=== PATIENT | male | born 1960 | race African-American/Black ===

== ENCOUNTER 2020-07-31 09:52 | Emergency (ER) | payer OTHER ==
[~2020-07-31] VITALS: Ht 188 cm; Wt 113.4 kg
[2020-07-31 10:18] VITALS: BP 154/94
--- NOTE | 2020-07-31 10:18 | NUR ---
ED Nurse Note: Patient from home and walked in due to left side CP and non radiating x 2 days. patient also c/o headache x 2 days. No reports of coughing or fever. AAOx4, ambulates with steday gait. No respiratory distress.
--- NOTE | 2020-07-31 10:41 | NUR ---
ED Nurse Note: Collected blood and urine then sent.
[2020-07-31 11:00] LABS: BASOPHILS % (AUTO) 2.6 % (0.0-2.0); EOSINOPHILS % (AUTO) 2.6 % (0.0-3.0); HEMATOCRIT 42.7 % (42.0-52.0); HEMOGLOBIN 14.3 G/DL (14.2-18.0); LYMPHOCYTES % (AUTO) 51.5 % (20.0-45.0); MEAN CORPUSCULAR VOLUME 97 FL (80-99); MONOCYTES % (AUTO) 5.7 % (1.0-10.0); NEUTROPHILS % (AUTO) 37.6 % (45.0-75.0); PLATELET COUNT 244 K/UL (150-450); RED BLOOD COUNT 4.38 M/UL (4.70-6.10); RED CELL DISTRIBUTION WIDTH 12.8 % (11.6-14.8); WHITE BLOOD COUNT 4.6 K/UL (4.8-10.8)
--- NOTE | 2020-07-31 11:02 | Emergency Room Report ---
History of Present Illness General Chief Complaint: Chest Pain Source: Patient Present Illness HPI Disclaimer: Please note that this report is being documented using [employer] technology. This can lead to erroneous entry secondary to incorrect interpretation by the dictating instrument. HPI: 60-year-old male presents for evaluation of chest pain. Patient noticed a left-sided chest pressure that was nonradiating while at work yesterday. He took 162 mg aspirin when returning home and rested in a warm bath which resolved his symptoms. He denies shortness of breath, palpitations, lightheadedness, diaphoresis, nausea, vomiting, fever, chills or other changes in his health. This morning he awoke with the same left-sided chest pressure. Again nonradiating. Does not appear to be exacerbated by movement or exertion but is relieved by rest. Patient does not take any medication aside from PPI for GERD. Non-smoker. Denies significant family history of CAD. PMH: GERD PSH: Denied Allergies: Penicillin Social Hx: Non-smoker Allergies: Coded Allergies: PENICILLINS (Verified Allergy, Unknown, 07/31/20) COVID-19 Screening Contact w/high risk pt: No Experienced COVID-19 symptoms?: No COVID-19 Testing performed ASSOCIATE PROFESSOR OF ECONOMICS: No Review of Systems All Other Systems: negative except mentioned in HPI Physical Exam Vital Signs Date Time Temp Pulse Resp B/P (MAP) Pulse Ox O2 Delivery O2 Flow Rate FiO2 07/31/20 10:08 98.1 81 22 163/111 (128) 95 Room Air General: Awake and alert, no acute distress HEENT: NC/AT. EOMI. Cardiovascular: RRR. S1 and S2 normal. No murmur appreciated Resp: Normal work of breathing. No cough, wheezing or crackles appreciated Abdomen: Abdomen is soft, nondistended. Nontender Skin: Intact. No abrasions, laceration or rash over the exposed skin MSK: Normal tone and bulk. Moving all extremities. No obvious deformity. Neuro: Awake and alert. Mentating appropriately. Medical Decision Making Diagnostic Impression: Primary Impression: Chest pain Additional Impression: Elevated serum creatinine ER Course Is a 60-year-old male presenting for evaluation of chest pain. Differential includes was not limited to angina, palpitations, GERD, ACS, arrhythmia, electrolyte abnormality, musculoskeletal chest pain, pneumonia, bronchitis, lung mass among others. EKG on arrival is nonischemic though does show a left axis deviation. Labs show elevated BUN/creatinine but there are no prior records for comparison. Troponin is negative. Chest x-ray shows no infiltrate, pneumothorax or other findings. Patient refused aspirin stating it gives him heartburn. He states he will take it later after he eats. I will start him on daily aspirin. Based on the patient's BUN and creatinine as well has his nonspecific chest pain I discussed admission with the patient however he decli arnold. He states he has an important meeting this afternoon he cannot miss. He would like copies of his work-up today to discuss with his PMD which I will provide. He states he would return if his chest pain worsened or if he developed any other symptoms. He also stated that because of his GERD medication he states he sometimes gets dehydrated which may be the cause of his abnormal labs at this time. I encouraged him to have repeat renal function testing within the next week and to discuss his chest pain with his PMD. He agrees to this plan and is stable for outpatient follow-up. Heart score: History: 1 EC Age: 3 Risk factors: 0 Initial troponin: 0 Total: 3 Laboratory Tests Test 07/31/20 10:35 White Blood Count 4.6 K/UL (4.8-10.8) L Red Blood Count 4.38 M/UL (4.70-6.10) L Hemoglobin 14.3 G/DL (14.2-18.0) Hematocrit 42.7 % (42.0-52.0) Mean Corpuscular Volume 97 FL (80-99) Mean Corpuscular Hemoglobin 32.5 PG (27.0-31.0) H Mean Corpuscular Hemoglobin Concent 33.4 G/DL (32.0-36.0) Red Cell Distribution Width 12.8 % (11.6-14.8) Platelet Count 244 K/UL (150-450) Mean Platelet Volume 6.7 FL (6.5-10.1) Neutrophils (%) (Auto) 37.6 % (45.0-75.0) L Lymphocytes (%) (Auto) 51.5 % (20.0-45.0) H Monocytes (%) (Auto) 5.7 % (1.0-10.0) Eosinophils (%) (Auto) 2.6 % (0.0-3.0) Basophils (%) (Auto) 2.6 % (0.0-2.0) H Sodium Level 139 MMOL/L (136-145) Potassium Level 4.3 MMOL/L (3.5-5.1) Chloride Level 103 MMOL/L (98-107) Carbon Dioxide Level 27 MMOL/L (21-32) Anion Gap 9 mmol/L (5-15) Blood Urea Nitrogen 22 mg/dL (7-18) H Creatinine 1.6 MG/DL (0.55-1.30) H Estimated Glomerular Filtration Rate 54.1 mL/min (>60) Glucose Level 96 MG/DL (74-106) Calcium Level 9.1 MG/DL (8.5-10.1) Total Bilirubin 0.3 MG/DL (0.2-1.0) Aspartate Amino Transferase (AST) 40 U/L (15-37) H Alanine Aminotransferase (ALT) 63 U/L (12-78) Alkaline Phosphatase 117 U/L (46-116) H Troponin I 0.000 ng/mL (0.000-0.056) Pro-B-Type Natriuretic Peptide 44 pg/mL (0-125) Total Protein 7.7 G/DL (6.4-8.2) Albumin 4.0 G/DL (3.4-5.0) Globulin 3.7 g/dL Albumin/Globulin Ratio 1.1 (1.0-2.7) Urine Opiates Screen Negative (NEGATIVE) Urine Barbiturates Screen Negative (NEGATIVE) Phencyclidine (PCP) Screen Negative (NEGATIVE) Urine Amphetamines Screen Negative (NEGATIVE) Urine Benzodiazepines Screen Negative (NEGATIVE) Urine Cocaine Screen Negative (NEGATIVE) Urine Marijuana (THC) Screen Positive (NEGATIVE) H EKG Diagnostic Results Troponin ordered: Yes When was troponin ordered?: Jul 31, 2020 EKG Time: 10:14 Rate: normal Rhythm: NSR ST Segments: no acute changes Other Impression Sinus rhythm, left axis deviation, normal intervals, QTC 4 3 4 ms, no ST segment elevation. ASA given to the pt in ED: Yes Rhythm Strip Diag. Results Rhythm Strip Time: 10:14 EP Interpretation: yes Rate: 80s Rhythm: NSR, no PVC's, no ectopy Chest X-Ray Diagnostic Results Chest X-Ray Diagnostic Results : Chest X-Ray Ordered: Yes # of Views/Limited/Complete: 1 View Indication: Chest Pain EP Interpretation: Yes Interpretation: no consolidation, no effusion, no pneumothorax, no acute cardiopulmonary disease Impression: No acute disease Electronically Signed by: Electronically signed by Dr. Trav Valadez MD Last Vital Signs Date Time Temp Pulse Resp B/P (MAP) Pulse Ox O2 Delivery O2 Flow Rate FiO2 07/31/20 10:18 81 20 Room Air 07/31/20 10:18 98.1 154/94 99 Disposition: HOME, SELF-CARE Condition: Stable Scripts Aspirin (Aspirin EC) 81 Mg Tablet. 81 MG ORAL DAILY for 30 Days, #30 TAB Prov: Trav Valadez MD 07/31/20 Referrals: [facility],REFERRING (PCP) Trav Valadez MD Jul 31, 2020 11:02
--- NOTE | 2020-07-31 11:25 | Diagnostic Imaging Report ---
Indication: Chest pain Technique: XRAY Chest 1v Comparison: None Findings: Heart size and mediastinal contours are within normal limits for AP technique. There is no focal airspace consolidation, pneumothorax or pleural effusion. Osseous structures demonstrate no acute abnormality. Impression: No radiographic evidence of acute cardiopulmonary disease.
[2020-07-31 11:35] LABS: ALBUMIN/GLOBULIN RATIO 1.1 (1.0-2.7); BILIRUBIN,TOTAL 0.3 MG/DL (0.2-1.0); CALCIUM 9.1 MG/DL (8.5-10.1); CREATININE 1.6 MG/DL (0.55-1.30); POTASSIUM 4.3 MMOL/L (3.5-5.1)
[2020-07-31 12:05] VITALS: BP 156/90
[2020-07-31] MEDS ORDERED: Aspirin Baby 81mg ORAL ONE (12:15)
--- NOTE | 2020-07-31 12:16 | NUR ---
ED Nurse Note: Pt refused ASA 162mg po. ERMD notified. Explained risk x3, verbally understood.
[2020-07-31] MEDS ORDERED: ASPIRIN-LOW81 MG ORAL (12:32)
[2020-07-31 12:49] VITALS: BP 149/90
--- NOTE | 2020-07-31 12:49 | NUR ---
ER DISCHARGE NOTE: Patient is cleared to be discharged per ERMD, pt is aox4, on room air, with stable vital signs. pt was given dc and prescription instructions, pt was able to verbalize understanding, pt id band and iv site removed without complications. pt is able to ambulate with steady gait. pt took all belongings.
== END 2020-07-31 12:49 | disposition home or self-care (01) ==
LOC: EMR 10:31
DX: R07.89 Other chest pain (principal); R94.4 Abnormal results of kidney function studies; K21.9 Gastro-esophageal reflux disease without esophagitis; Z88.0 Allergy status to penicillin
CPT/HCPCS: 36415; 71045; 80053; 80307; 83880; 84484; 85025; 93005; Z7502; 99283

== ENCOUNTER 2020-11-19 09:42 | Emergency (ER) | payer OTHER ==
[~2020-11-19] VITALS: Ht 188 cm; Wt 113.4 kg
[~2020-11-19 09:42] MED LIST: ASPIRIN-LOW81 MG ORAL
--- NOTE | 2020-11-19 10:08 | Emergency Room Report ---
History of Present Illness General Chief Complaint: Back Pain-No Injury Source: Patient Present Illness HPI Patient is a 60-year-old male presents for increased neck and back pain. Reports having increased discomfort to his neck for the past few months. Had recent cardiac stress test with his physician which he reports was normal. Patient states that he had been having worse pain with walking. Pain to his neck is worse with movements. Reports having no recent injury. Had previous neck imaging which he states was unremarkable but this was many years ago. Allergies: Coded Allergies: PENICILLINS (Verified Allergy, Unknown, 07/31/20) COVID-19 Screening Contact w/high risk pt: No Experienced COVID-19 symptoms?: No COVID-19 Testing performed GUEST SERVICE HOST: No Patient History Past Medical History: see triage record Reviewed Nursing Documentation: PMH: Agreed; PSxH: Agreed Review of Systems All Other Systems: negative except mentioned in HPI Physical Exam Vital Signs Date Time Temp Pulse Resp B/P (MAP) Pulse Ox O2 Delivery O2 Flow Rate FiO2 11/19/20 09:53 98.2 92 18 161/98 (119) 97 Room Air Sp02 EP Interpretation: reviewed, normal General Appearance: normal inspection, well appearing, no apparent distress, alert, GCS 15, non-toxic Head: atraumatic ENT: normal ENT inspection, hearing grossly normal, normal voice Neck: normal inspection, supple, no bony tend, limited range of motion Respiratory: normal inspection, lungs clear, normal breath sounds, no respiratory distress, no retraction, no wheezing Cardiovascular #1: regular rate, rhythm, no edema Gastrointestinal: normal inspection, normal bowel sounds, non tender, soft, no guarding, no hernia Genitourinary: no CVA tenderness Musculoskeletal: normal inspection Neurologic: alert, motor strength/tone normal, melangeur operator III-XII nml as tested, oriented x3, responsive, speech normal, normal inspection Psychiatric: normal inspection, judgement/insight normal, mood/affect normal Medical Decision Making ER Course Patient presents for increased neck pain and low back. Differential diagnosis include was not limited to arthritis, spinal stenosis, lumbar disc disease, gout among others. Because of complexity of patient's case laboratory tests and imaging studies were ordered.Patient presenting recent negative stress treadmill test. Patient denies any exertional chest pain. Reports having primarily pain with movements and standing. Is diminished range of motion of his neck s uggesting that his pain is musculoskeletal. Last Vital Signs Date Time Temp Pulse Resp B/P (MAP) Pulse Ox O2 Delivery O2 Flow Rate FiO2 11/19/20 09:53 98.2 92 18 161/98 (119) 97 Room Air Status: improved Disposition: HOME, SELF-CARE Condition: Stable Referrals: NON PHYSICIAN (PCP) Brando Valentino MD Nov 19, 2020 10:08
[2020-11-19] MEDS ORDERED: Ketorolac 30mg Inj IV ONE (10:15)
[2020-11-19 10:22] VITALS: BP 165/90
[2020-11-19 10:46] LABS: EOSINOPHILS % (AUTO) 2.3 % (0.0-3.0); HEMOGLOBIN 14.1 G/DL (14.2-18.0); LYMPHOCYTES % (AUTO) 44.7 % (20.0-45.0); MEAN CORPUSCULAR VOLUME 95 FL (80-99); MONOCYTES % (AUTO) 7.4 % (1.0-10.0); NEUTROPHILS % (AUTO) 43.7 % (45.0-75.0); PLATELET COUNT 292 K/UL (150-450); RED BLOOD COUNT 4.54 M/UL (4.70-6.10); RED CELL DISTRIBUTION WIDTH 12.3 % (11.6-14.8); WHITE BLOOD COUNT 5.9 K/UL (4.8-10.8)
[2020-11-19 10:46] LABS: APPEARANCE,URINE CLEAR; BILIRUBIN, URINE NEGATIVE (NEGATIVE); COLOR,URINE PALE YELLOW; GLUCOSE, URINE (UA) NEGATIVE (NEGATIVE); KETONES,URINE 1+ (NEGATIVE); LEUKOCYTE ESTERASE ,URINE 1+ (NEGATIVE); NITRITE,URINE NEGATIVE (NEGATIVE); PH,URINE 7 (4.5-8.0); PROTEIN,URINE 2+ (NEGATIVE); UROBILINOGEN,URINE NORMAL MG/DL (0.0-1.0)
[2020-11-19 11:03] LABS: CALCIUM 9.7 MG/DL (8.5-10.1); CREATININE 1.6 MG/DL (0.55-1.30); POTASSIUM 3.9 MMOL/L (3.5-5.1)
[2020-11-19 11:15] LABS: ALBUMIN 4.2 G/DL (3.4-5.0); ALBUMIN/GLOBULIN RATIO 1.1 (1.0-2.7); BILIRUBIN,TOTAL 0.5 MG/DL (0.2-1.0)
--- NOTE | 2020-11-19 11:45 | NUR ---
pt arrived for upper neck pain at base of skull, lower back pain on L side mostly. pt states pain when standing, unable to stand straight, pain when lying down unless lumbar support used, pain when straightening legs. pt denies trauma to area, only states injury over 20 years ago. pt A&Ox4, slow ambulation but steady gait. pt able to turn head, states pain when pressure applied to top of head. reflexes intact. pt states allergy to PCN. denies pmh.
[2020-11-19] MEDS ORDERED: ROBAXIN-500MG ORAL (11:52)
--- NOTE | 2020-11-19 12:33 | Diagnostic Imaging Report ---
Indications: Neck and back pain, worse with walking Technique: Spiral acquisitions obtained through the lumbar spine. Multiplanar reconstructions were generated. No IV contrast utilized. Total dose length product 530 mGycm. CTDIvol(s) 16 mGy. Dose reduction achieved using automated exposure control Comparison: none Findings: Bony alignment is normal. Vertebral body heights are preserved. The disc spaces are preserved. No acute fracture. No dislocation. In the left L4 pars interarticularis, there is an osteolytic lesion which measures 11 x 8 mm. There is some degenerative change of the left L4-5 facet joint. There is also degenerative change at the L3-4 facet joint on the left. Small lucencies are seen within the right L4 pars interarticularis in the right L5 pars interarticularis. There is also degenerative change of the L4-5 facet. Posterior to L4, there is extensive fat containing material in the epidural space to the right of midline which measures 8 x 8 mm orthogonal short axis dimensions, and appears to significantly narrow the spinal canal. There is also some similar slightly higher attenuation material on the left as well At L4-5, circumferential annular bulge, facet and ligamentum flavum hypertrophy result in mild to moderate narrowing of the spinal canal. There is similar symmetrical bilateral epidural lipomatosis in the spinal canal posterior to L5, but this does not appear to significantly narrow the spinal canal. No significant disc bulge or protrusion seen at L5-S1. 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 However, other etiologies, including osteolytic neoplasm, should also be considered. Recommend MRI with contrast for further evaluation Small lucencies in the right L4 and L5 pars, as mentioned above, suspect represent degenerative subchondral cyst Evidence of epidural lipomatosis, most pronounced at L4 and possibly resulting in significant spinal canal stenosis at this level. Likewise recommend MRI to better characterize Other degenerative changes as detailed above Findings discussed by phone with Dr. Valentino in the emergency room at the time of interpretation The CT scanner at [facility] is accredited by the [employer] and the scans are performed using protocols designed to limit radiation exposure to as low as reasonably achievable to attain images of sufficient resolution adequate for diagnostic evaluation.
--- NOTE | 2020-11-19 12:34 | Diagnostic Imaging Report ---
Indication: Neck pain Technique: Spiral acquisitions obtained through the cervical spine. No IV contrast utilized. Multiplanar reconstructions were generated. Total dose length product 523 mGycm. CTDIvol(s) 20 mGy. Dose reduction achieved using automated exposure control. Comparison: none Findings: Bony alignment is normal. No prevertebral soft tissue swelling. No acute fracture. At C3-4, there is marked degenerative disc narrowing. There is severe bilateral neural foraminal stenosis. At C4-5, there is marked degenerative disc narrowing. There is severe bilateral neural foraminal stenosis At C5-6, there is marked degenerative disc narrowing. There is moderate left and severe right neural foraminal stenosis. At C6-7, there is mild degenerative disc narrowing. The neural foramina are preserved. No significant disc bulge or protrusion or spinal stenosis demonstrated. The knee included soft tissues are unremarkable. Impression: No acute bony trauma Degenerative changes as described The CT scanner at [facility] is accredited by the [employer] and the scans are performed using protocols designed to limit radiation exposure to as low as reasonably achievable to attain images of sufficient resolution adequate for diagnostic evaluation.
[2020-11-19 12:53] VITALS: BP 159/98
--- NOTE | 2020-11-19 12:55 | NUR ---
ED Nurse Note: Pt cleared by health care Provider for discharge. DC instructions/prescription was given and explained to pt and verbalized understanding of teachings. All medical deviecs such as ID band removed. Pt is AAO x4, ambulatory and left with all personal belongings.
--- NOTE | 2020-11-22 15:33 | Cardiology Report ---
APPROVED REPORT EKG Measurement Heart [id number] 140P30 [id number] <Conclusion> Normal sinus rhythm Left axis deviation Abnormal ECG
== END 2020-11-19 12:36 | disposition home or self-care (01) ==
LOC: EMR 09:50
DX: M54.2 Cervicalgia (principal); M54.5 Low back pain; Z88.0 Allergy status to penicillin
CPT/HCPCS: 36415; 72125; 72131; 80053; 81003; 83880; 84484; 84550; 85025; 85379; 86140; 93005; 96374; J1885; Z7502; 99284